=== PATIENT | male | born 1975 | race Asian ===

== ENCOUNTER 2017-12-14 14:31 | Inpatient (IN) | payer BC ==
[2017-12-14 14:58] LABS: #Basophils 0.1 thou/uL (0.0-0.2); #Eosinphils 0.1 thou/uL (0.0-0.7); #Lymphocytes 2.2 thou/uL (1.20-3.40); #Monocytes 0.8 thou/uL (0.11-0.59); %Basophils 0.6 % (0.0-1.0); %Eosinophils 0.8 % (0.0-10.0); %Lymphocytes 24.3 % (21.0-51.0); %Monocytes 8.9 % (0.0-10.0); %Neutrophils 65.5 % (42.0-75.0); Hemoglobin 16.3 g/dL (14.0-18.0); Mean Corpuscular HGB CONC 34.3 g/dL (32.0-36.0); Mean Corpuscular Hemoglobin 26.6 pg (27.0-31.0); Mean Corpuscular Volume 77.6 fL (78.0-98.0); Mean Platelet Volume 8.1 fL (7.4-10.4); Platelet Count 281 thou/uL (130-400); RBC Distribution Width 11.9 % (11.5-14.5); Red Blood Cell (RBC) Count 6.12 mill/uL (4.70-6.10); White Blood Cell (WBC) Count 9.2 thou/uL (4.8-10.8)
[2017-12-14 15:07] LABS: Bilirubin Negative (Negative); Blood, Urine Negative (Negative); Clarity Clear (Clear); Glucose, Urine (Dipstick) Negative (Negative); Leukocyte Negative (Negative); Nitrite Negative (Negative); Protein, Urine (Dipstick) Negative (Neg-Trace); Urobilinogen 0.2 mg/dL (0.2-1.0)
[2017-12-14 15:13] LABS: ALT (SGPT) 25 U/L (8-55); AST (SGOT) 17 U/L (5-34); Albumin 4.5 g/dL (3.5-5.0); Alkaline Phosphatase 115 U/L (40-150); Anion Gap 14 mmol/L (10-20); BUN (Urea Nitrogen) 9 mg/dL (8.9-20.6); Calc. Creatinine Clearance 0 mL/min (70-130); Calcium 9.9 mg/dL (7.8-10.44); Carbon Dioxide 26 mmol/L (22-29); Chloride 104 mmol/L (98-107); Estimated GFR-MDRD Greater than 90; Globulin 3.5 g/dL (2.4-3.5); Glucose 86 mg/dL (70-105); Potassium 3.9 mmol/L (3.5-5.1); Sodium 140 mmol/L (136-145)
--- NOTE | 2017-12-14 16:14 | CT ---
ABDOMEN CT WITH CONTRAST PELVIC CT WITH CONTRAST 12/14/17 HISTORY: Abdominal pain and bloating, onset yesterday. Constipation. Patient has a past medical history of sma ll bowel obstruction. COMPARISON: None. TECHNIQUE: Abdomen and pelvic CT are performed with IV contrast. Enteric contrast is not administered. Coronal r eformatted images are submitted. FINDINGS: ABDOMEN CT Scarring and atelectasis of the lung bases. Normal heart size. No pericardial effusion. The descendin g thoracic aorta and abdominal aorta have a normal caliber. No periaortic fat stranding. Gallbladder is unremarkable. Contraction of the gallbladder due to nonfasting state. Intra and extrah epatic portal vein is patent. There appears to be hyperdensity involving the hepatic dome which has a coarse of a vascular distribu tion. Correlate for possible previous embolization or thrombosed vascular phenomenon. The spleen, blunt creas and adrenal glans have appropriate enhancement. Symmetric enhancement of the kidneys. Bilaterally, no obstructive uropathy. No gastrohepatic, retrocr ural or periportal lymphadenopathy. No mesenteric mass, free air or free fluid. There are a few scattered nonspecific mesenteric lymph no kate. Enlarged right lower quadrant mesenteric lymph node measures 1.2 x 0.8 cm. Limited evaluation of the alimentary canal. Gastric mucosa, duodenum and proximal small bowel loops a re unremarkable. There is a segment of fluid filled mid small bowel with fecalization. Distal to this area of dilated small bowel, the remaining small bowel is decompressed. A focal ileus or short segme nt early or partial small bowel obstruction should be considered especially given fecalization within the small bowel segment and decompression of the distal bowel loops. Ileocecal junction is normal. N ormal caliber appendix. Colon is unremarkable and decompressed. PELVIC CT: No mass, lymphadenopathy, free air or free fluid. No lytic or blastic lesion in the osseous structure s. IMPRESSION: Prominent loop of mid small bowel with fecalization. Correlate for focal ileus versus an early or par tial short segment obstructive process. Surgical consultation is recommended. POS: TOMI
[2017-12-14] MEDS ORDERED: Morphine 4 MG/ML Carpuject ONE (16:52)
[2017-12-14] MEDS ORDERED: Ondansetron HCl/PF 4 MG/2 ML Vial ONE (17:50)
[2017-12-14] MEDS ORDERED: Ondansetron ODT 4 MG TAB SL PRN (20:14)
[2017-12-14] MEDS ORDERED: Ondansetron HCl/PF 4 MG/2 ML Vial IVP PRN (20:14)
[2017-12-14 20:23] VITALS: BMI 32.3
[2017-12-14] MEDS: Sodium Chloride 0.9% 1,000 ML IV SCH (20:44)
[2017-12-14] MEDS: Morphine 4 MG/ML VIAL SLOW IVP PRN (20:45)
[2017-12-15] MEDS: Morphine 4 MG/ML VIAL SLOW IVP PRN (00:55)
[2017-12-15] MEDS: Sodium Chloride 0.9% 1,000 ML IV SCH (04:05)
[2017-12-15] MEDS ORDERED: Morphine 4 MG/ML VIAL IV PRN ×2 (06:28)
[2017-12-15] MEDS ORDERED: Acetaminophen 1,000 MG in Premix Bag 1 BAG IVPB PRN (06:29)
[2017-12-15 07:21] LABS: #Lymphocytes 1.5 thou/uL (1.20-3.40); #Monocytes 1.5 thou/uL (0.11-0.59); #Neutrophils 10.7 thou/uL (1.40-6.50); %Basophils 0.1 % (0.0-1.0); %Eosinophils 0.2 % (0.0-10.0); %Lymphocytes 10.8 % (21.0-51.0); %Monocytes 10.7 % (0.0-10.0); %Neutrophils 78.2 % (42.0-75.0); Hemoglobin 15.6 g/dL (14.0-18.0); Mean Corpuscular HGB CONC 34.6 g/dL (32.0-36.0); Mean Corpuscular Hemoglobin 28.3 pg (27.0-31.0); Mean Corpuscular Volume 81.7 fL (78.0-98.0); Mean Platelet Volume 7.2 fL (7.4-10.4); Platelet Count 272 thou/uL (130-400); RBC Distribution Width 12.9 % (11.5-14.5); Red Blood Cell (RBC) Count 5.52 mill/uL (4.70-6.10); White Blood Cell (WBC) Count 13.7 thou/uL (4.8-10.8)
[2017-12-15 07:39] LABS: ALT (SGPT) 19 U/L (8-55); AST (SGOT) 14 U/L (5-34); Alkaline Phosphatase 103 U/L (40-150); Anion Gap 13 mmol/L (10-20); BUN (Urea Nitrogen) 11 mg/dL (8.9-20.6); Bilirubin, Total 1.1 mg/dL (0.2-1.2); Calc. Creatinine Clearance 164 mL/min (70-130); Calcium 9.4 mg/dL (7.8-10.44); Carbon Dioxide 24 mmol/L (22-29); Chloride 105 mmol/L (98-107); Estimated GFR-MDRD Greater than 90; Globulin 3.2 g/dL (2.4-3.5); Glucose 111 mg/dL (70-105); Potassium 4.4 mmol/L (3.5-5.1); Protein, Total 7.2 g/dL (6.0-8.3); Sodium 138 mmol/L (136-145)
--- NOTE | 2017-12-15 08:19 | RAD ---
ABDOMEN TWO VIEWS: 12/15/2017 PROVIDED CLINICAL HISTORY: Small bowel obstruction. COMPARISON: 12/14/2017 FINDINGS: The upright view includes the right hemidiaphragm. Given this limitation, there is no evidence for p neumoperitoneum. An enteric catheter now overlies the left upper quadrant. Dilated loops of small b owel overly the central mid abdomen, compatible with the provided clinical history of a small bowel o bstruction. No radiographically apparent urinary tract calculi. Contrast material is noted within t he urinary bladder. IMPRESSION: Findings compatible with the provided clinical history of small bowel obstruction. Interval placemen t of enteric catheter. POS: ALBERTINA
[2017-12-15] MEDS: D5 1/2 NS w/20 mEq KCL 1,000 ML IV SCH ×2 (14:57→23:35)
[2017-12-15] MEDS: Pantoprazole 40 MG VIAL IVP SCH (20:50)
--- NOTE | 2017-12-15 23:42 | HP ---
CHIEF COMPLAINT: Abdominal pain. HISTORY OF PRESENT ILLNESS: Mr. Deal is a 42-year-old man with past surgical history of a laparot hola for a small bowel volvulus, which was reduced. He presented to the emergency room with a several day history of constipation and a 1-day history of abdominal pain. He denied any nausea or vomiting , but the abdominal pain was getting worse, so he came in the emergency room. An NG tube was placed and he was admitted to the hospital after CT scan showed a small-bowel obstruction. When I saw him t his morning, he was denying any passage of flatus and was still having some pain mostly in the left u pper quadrant. When I came back to check on him a few hours later, however, he does have the pain wi th last and that he has passed some gas. He denies any nausea throughout and has not had a bowel mov ement since several days. PAST MEDICAL HISTORY: None. PAST SURGICAL HISTORY: Laparotomy for small bowel volvulus. According to the operative report, this was a loop of intestine, not be entire intestine which had twisted on mesentery and which was entire ly viable. SOCIAL HISTORY: Patient does not smoke, drink, or use illicit drugs. FAMILY HISTORY: Positive for hypertension and laryngeal cancer in his father. ALLERGIES: He has no known drug allergies. MEDICATIONS: He does not take any medication as an outpatient. REVIEW OF SYSTEMS: Ten-system review of systems is negative except per HPI. He has no fevers or chi lls, no exacerbating or alleviating factors, although a medicine has helped since coming to the [facility]. PHYSICAL EXAMINATION: VITAL SIGNS: Patient has been afebrile since this admission. Heart rate 82, respirations 20, 100% s aturated on room air, blood pressure 140/92. GENERAL: Reveals a healthy-appearing man in no acute distress. He is not flushed or toxic in appear ance. He is not jaundiced or icteric. HEENT: Unremarkable. NECK: Supple without lymphadenopathy or thyroid nodules. HEART: Regular in its rate and rhythm without murmurs, rubs, or gallop. LUNGS: Clear to auscultation bilaterally. ABDOMEN: Soft and nondistended with diminished bowel sounds. He is slightly tender to palpation in the right upper quadrant and moderately tender in the left upper quadrant. Does not exhibit rigidity , rebound, or guarding. He does not have any palpable masses or hernias. He has a healed upper midl ine incision. EXTREMITIES: Warm and well perfused without edema. NEUROLOGIC: No focal deficits. PSYCHIATRIC: Alert, oriented, and appropriate. IMAGING: CT images are reviewed and I agree with the written report. The patient appears to have a proximal small bowel obstruction with fecalization of the proximal jejunum. There is definite transi tion point in the right upper quadrant. I do not see any signs of recurrent volvulus. The stomach w as very distended on the CT scan, but according to the patient and his family, after the NG tube was placed, there was a large amount of output in the emergency room and there has been minimal output si nce. ASSESSMENT: Proximal small-bowel obstruction likely due to adhesions from previous surgery. Initial ly I had felt that surgery would likely be necessary; however, symptomatically the patient is improvi ng, so we will give a trial of nonoperative management with NG decompression and n.p.o. status. I warren ve ordered a small bowel follow through for tomorrow. If this is abnormal, then we will plan on lapa roscopic lysis of adhesions if possible with conversion to laparotomy significance. Adhesions are en countered or if small bowel resection is necessary. The patient and his family are in agreement with this plan. All their questions were answered.
[2017-12-16 04:40] LABS: #Eosinphils 0.1 thou/uL (0.0-0.7); #Lymphocytes 2.3 thou/uL (1.20-3.40); #Monocytes 1.4 thou/uL (0.11-0.59); #Neutrophils 5.6 thou/uL (1.40-6.50); %Basophils 0.5 % (0.0-1.0); %Eosinophils 1.2 % (0.0-10.0); %Lymphocytes 24.3 % (21.0-51.0); %Monocytes 14.8 % (0.0-10.0); %Neutrophils 59.2 % (42.0-75.0); Hemoglobin 15.2 g/dL (14.0-18.0); Mean Corpuscular HGB CONC 34.4 g/dL (32.0-36.0); Mean Corpuscular Hemoglobin 28.4 pg (27.0-31.0); Mean Corpuscular Volume 82.7 fL (78.0-98.0); Mean Platelet Volume 7.5 fL (7.4-10.4); Platelet Count 238 thou/uL (130-400); RBC Distribution Width 12.8 % (11.5-14.5); Red Blood Cell (RBC) Count 5.34 mill/uL (4.70-6.10); White Blood Cell (WBC) Count 9.4 thou/uL (4.8-10.8)
[2017-12-16 05:02] LABS: Anion Gap 12 mmol/L (10-20); BUN (Urea Nitrogen) 9 mg/dL (8.9-20.6); Calc. Creatinine Clearance 146 mL/min (70-130); Calcium 9.2 mg/dL (7.8-10.44); Carbon Dioxide 24 mmol/L (22-29); Chloride 105 mmol/L (98-107); Estimated GFR-MDRD Greater than 90; Glucose 107 mg/dL (70-105); Potassium 4.1 mmol/L (3.5-5.1); Sodium 137 mmol/L (136-145)
[2017-12-16] MEDS: D5 1/2 NS w/20 mEq KCL 1,000 ML IV SCH ×2 (07:52→17:49)
[2017-12-16] MEDS: Pantoprazole 40 MG VIAL IVP SCH (07:52)
[2017-12-16] MEDS ORDERED: Acetaminophen 1,000 MG in Premix Bag 1 BAG IVPB PRN (08:13)
--- NOTE | 2017-12-16 14:49 | RAD ---
GASTROGRAFIN SMALL BOWEL 12/16/17 HISTORY: Evaluate for partial small bowel obstruction. COMPARISON: None. 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 Dilated loop of small bowel in the left hemiabdomen is noted. Patient was administered gastrografin which does pass via the dilated small bowel loops into decompre ssed and normal caliber distal small bowel. Contrast opacifies the colon as early as 30 minutes. IMPRESSION: No evidence of high grade obstruction. POS: ALBERTINA
[2017-12-16 15:43] VITALS: BP 124/87; TEMP 98.3
[2017-12-16] MEDS ORDERED: Sodium Chloride 0.9% 1,000 ML IV SCH (16:00)
== END 2017-12-16 18:43 | disposition home or self-care (01) | DRG 390 ==
LOC: SCSER 14:31 → SURG A 19:40
PROVIDERS: ADMIT Surgery; ATTEND Surgery
PROC: 0D9670Z Drainage of Stomach with Drainage Device, Via Natural or Artificial Opening (ICD-10-PCS; principal; 2017-12-14)
DX: K56.600 Partial intestinal obstruction, unspecified as to cause (principal); K59.00 Constipation, unspecified
CPT/HCPCS: 36415; 74019; 74177; 74250; 80048; 80053; 81003; 83605; 83690; 85025; 86140; 96361; 96374; 96375; C9113; J0131; J2270; J2405